=== PATIENT | female | born 1980 | race Caucasian/White ===

== ENCOUNTER 2019-08-26 14:18 | Emergency (ER) | payer OTHER ==
[~2019-08-26] VITALS: Ht 170.2 cm; Wt 78.5 kg
[2019-08-26 14:21] VITALS: Ht 170.2 cm; Wt 78.5 kg
[2019-08-26 15:45] VITALS: BP 151/79
[2019-08-26 16:03] LABS: microscopic required? YES; urine erythrocyte 3+ (NEGATIVE)
== END 2019-08-26 15:45 | disposition home or self-care (01) ==
LOC: ED 14:18
PROVIDERS: Specialist
DX: N39.0 Urinary tract infection, site not specified (principal); Z90.49 Acquired absence of other specified parts of digestive tract; Z98.51 Tubal ligation status; Z98.890 Other specified postprocedural states
CPT/HCPCS: 87491; 87591